=== PATIENT | female | born 1950 | race Caucasian/White ===

== ENCOUNTER 2016-07-09 11:41 | Emergency (ER) | payer MEDICARE ==
[~2016-07-09 11:41] MED LIST: ACETAMINOPHEN325 M1 PO; ADVAIR 1001 DISK W/D IH; AMLODIPINE BESY10 MG PO; ASPIRIN325 M1 PO; CALCIUM500 MG PO; CHANTIX0.5 MG PO; COUMADIN; COUMADIN10 MG PO; COUMADIN5 MG PO; CYCLOBENZAPRINE10 MG PO; FLEXERIL10 MG PO; FLOXIN OTIC5 M1 OT; HYDROCHLOROTH12.5 MG PO; HYDROCHLOROTHIA25 MG PO; IBUPROFEN800 MG PO; IRON325 M1 PO; KEFLEX500 MG PO; LO-DOSE ASPIRIN81 M1 PO; LOTRISONE15 GM TOP; MARINOL2.5 MG PO; MINIPRESS1 MG PO; MULTIVITAMIN1 TAB PO; NICODERM21 MG/PATC TD; NITRO-BID30 GM TD; NORCO 5/3251 TAB PO; NORCO 7.5/325 T1 TAB PO; NORCO 7.5/3251 TAB PO; OMEGA-31000 MG PO; OXYCODONE APAP PO; OXYCONTIN10 M1 PO; PERCOCET 5/3251 TAB PO; POTASSIUM CHLO10 MEQ PO; PRILOSEC20 MG PO; PROZAC20 MG PO; RESTORIL15 MG PO; RESTORIL30 MG PO; SENOKOT-S TABLE1 TAB PO; ULTRAM50 M1 PO; VENTOLIN HFA18 G2 INH; VENTOLIN HFA8 GM IH; VITAMIN B12500 MCG PO; VITAMIN D 22000 UNIT PO; VITAMIN D-50000 IU/C PO; VITAMIN D50000 UNIT PO; Vitamin D PO; XANAX0.5 M1 PO; XANAX0.5 MG PO; ZOLOFT50 M1 PO; [UNRECOGNIZED DRUG - OTHER] MM
[2016-07-09] MEDS ORDERED: VENTOLIN HFA18 G2 INH (12:04)
[2016-07-09] MEDS ORDERED: PAMELOR25 M1 PO (12:05)
[2016-07-09] MEDS ORDERED: RESTORIL15 M1 PO (12:06)
[2016-07-09 12:34] LABS: ANION GAP 11 mmol/L (0-20); BLOOD UREA NITROGEN 14 mg/dl (6-24); CALCIUM 9.6 mg/dl (8.5-10.5); CARBON DIOXIDE-VENOUS 32 mmol/L (22-32); CHLORIDE 102 mmol/l (96-110); CREATININE 0.84 mg/dl (0.50-1.10); GLUCOSE 85 mg/dL (70-110); POTASSIUM 3.2 mmol/L (3.7-5.1); SODIUM 142 mmol/L (135-145); eGFR VALUE FOR BLACK 84 mL/Min
[2016-07-09] MEDS ORDERED: POTASSIUM CHLO10 ME2 PO (13:11)
[2016-07-09] MEDS ORDERED: LASIX20 M1 PO (13:16)
== END 2016-07-09 13:25 ==
LOC: EDMED 11:41
PROVIDERS: Emergency Medicine
DX: R60.0 Localized edema (principal); E87.6 Hypokalemia; J44.9 Chronic obstructive pulmonary disease, unspecified; F17.210 Nicotine dependence, cigarettes, uncomplicated